=== PATIENT | male | born 1990 | race Caucasian/White ===

== ENCOUNTER 2020-11-22 23:14 | Emergency (ER) | payer OTHER ==
[2020-11-22 23:29] VITALS: BP 143/86; PULSE 82; TEMP 97.9; BMI 27.1
== END 2020-11-23 00:09 | disposition home or self-care (01) ==
LOC: JER 23:14
DX: Z77.29 Contact with and (suspected) exposure to other hazardous substances (principal)
CPT/HCPCS: 99282-25